=== PATIENT | female | born 1975 | race Caucasian/White ===

== ENCOUNTER → 2020-08-05 15:15 | Outpatient (CLI) | payer OTHER, SELFPAY ==
[2020-08-05 16:58] LABS: Anion Gap 6 (5-15); BUN 8 mg/dL (7-18); BUN/Creat Ratio 13.3 RATIO (10-20); Calcium,Total 9.6 mg/dL (8.5-10.1); Chloride 103 mmol/L (98-107); EST Glomerular Filtration Rate 116 mL/min (>60); Est Glom Filt Rate - Afr Amer 140 mL/min (>60); Glucose 94 mg/dL (74-106); Potassium 3.8 mmol/L (3.5-5.1); Sodium Level 139 mmol/L (136-145)
== END ==
PROVIDERS: PCP Family Medicine Geriatric Medicine; Visit Provider Family Medicine Geriatric Medicine
DX: E87.6 Hypokalemia (principal)
CPT/HCPCS: 36415; 80048

== ENCOUNTER → 2020-08-26 11:31 | Outpatient (CLI) | payer OTHER, SELFPAY ==
[2020-08-26 12:19] LABS: Absolute Lymphocyte Count 1.27 X10^3/uL (0.83-4.51); Absolute Neutrophil Count 4.2 X10^3/uL (2.0-7.7); Basophil# 0.02 X10^3/uL; Basophil% 0.3 % (0-1); Eosinophil# 0.02 X10^3/uL; Eosinophils% 0.3 % (0-5); Hematocrit 44.4 % (37-47); Hemoglobin 14.4 g/dL (12.0-15.0); Lymphocyte # 1.27 X10^3/ul (4.0); Mean Corp Hgb Conc 32.4 g/dL (32-36); Mean Corpuscular Hgb 30.3 pg (27.0-32.0); Mean Corpuscular Volume 93.3 fL (81-99); Monocyte# 0.48 X10^3/uL; Monocyte% 7.9 % (0-10); NRBC Flagged by Analyzer 0 % (0-5); Neutrophil # 4.23 X10^3/uL (2.7-7.7); Platelet Count 324 K/mm3 (150-450); RBC Distribution Width SD 44.7 fl (35.1-43.9); Red Blood Count 4.76 M/mm3 (4.2-5.4); White Blood Count 6.1 K/mm3 (4.4-11.0)
[2020-08-26 12:37] LABS: ALB/GLOB Ratio 1.3 RATIO (0.9-2.4); AST(SGOT) 15 U/L (15-37); Alanine Aminotransfer ALT/SGPT 36 U/L (13-56); Albumin, Serum 4.7 g/dL (3.2-5.0); Alkaline Phosphatase 123 U/L (45-117); Anion Gap 9 (5-15); BUN 14 mg/dL (7-18); BUN/Creat Ratio 24.6 RATIO (10-20); Calcium,Total 9.7 mg/dL (8.5-10.1); Chloride 102 mmol/L (98-107); Creatinine, Serum 0.57 mg/dL (0.55-1.02); EST Glomerular Filtration Rate 123 mL/min (>60); Est Glom Filt Rate - Afr Amer 149 mL/min (>60); Globulin 3.5 g/dL (2.2-4.2); Glucose 93 mg/dL (74-106); Potassium 3.6 mmol/L (3.5-5.1); Protein, Total 8.2 g/dL (6.4-8.2); Sodium Level 140 mmol/L (136-145)
== END ==
PROVIDERS: PCP Family Medicine Geriatric Medicine; Visit Provider Family Medicine Geriatric Medicine
DX: R11.0 Nausea (principal); R19.5 Other fecal abnormalities; N39.0 Urinary tract infection, site not specified
CPT/HCPCS: 36415; 80053; 82274; 83630; 85025; 87086; 87088; 87177; 87209; 87493; 87506

== ENCOUNTER → 2020-12-16 10:08 | Outpatient (CLI) | payer OTHER, SELFPAY ==
[2020-12-16 12:42] LABS: Absolute Lymphocyte Count 1.27 X10^3/uL (0.83-4.51); Absolute Neutrophil Count 4.1 X10^3/uL (2.0-7.7); Basophil# 0.03 X10^3/uL; Basophil% 0.5 % (0-1); Eosinophil# 0.07 X10^3/uL; Eosinophils% 1.2 % (0-5); Hematocrit 43.1 % (37-47); Hemoglobin 14.2 g/dL (12.0-15.0); Lymphocyte # 1.27 X10^3/ul (0.83-4.51); Lymphocyte % 21.1 % (19-41); Mean Corp Hgb Conc 32.9 g/dL (32-36); Mean Corpuscular Hgb 29.8 pg (27.0-32.0); Mean Corpuscular Volume 90.4 fL (81-99); Mean Platelet Vol. 10.6 fl (6.2-12.0); Monocyte# 0.52 X10^3/uL; Monocyte% 8.6 % (0-10); NRBC Flagged by Analyzer 0 % (0-5); Neutrophil # 4.07 X10^3/uL (2.7-7.7); Neutrophil % 67.6 % (47-70); Platelet Count 280 K/mm3 (150-450); RBC Distribution Width CV 11.6 % (11.6-14.6); RBC Distribution Width SD 38.5 fl (35.1-43.9); Red Blood Count 4.77 M/mm3 (4.2-5.4)
[2020-12-16 13:17] LABS: ALB/GLOB Ratio 1.2 RATIO (0.9-2.4); AST(SGOT) 24 U/L (15-37); Alanine Aminotransfer ALT/SGPT 42 U/L (13-56); Albumin, Serum 4.1 g/dL (3.2-5.0); Alkaline Phosphatase 120 U/L (45-117); Anion Gap 6 (5-15); BUN 16 mg/dL (7-18); BUN/Creat Ratio 23.4 RATIO (10-20); Calcium,Total 8.7 mg/dL (8.5-10.1); Chloride 105 mmol/L (98-107); Creatinine, Serum 0.68 mg/dL (0.55-1.02); EST Glomerular Filtration Rate 99 mL/min (>60); Est Glom Filt Rate - Afr Amer 120 mL/min (>60); Globulin 3.3 g/dL (2.2-4.2); Glucose 96 mg/dL (74-106); Potassium 3.9 mmol/L (3.5-5.1); Protein, Total 7.4 g/dL (6.4-8.2); Sodium Level 138 mmol/L (136-145); Thyroid Stim Hormone (TSH) 0.98 uIU/mL (0.358-3.74)
== END ==
PROVIDERS: PCP Family Medicine Geriatric Medicine; Visit Provider Family Medicine Geriatric Medicine
DX: R53.83 Other fatigue (principal)
CPT/HCPCS: 36415; 80053; 84443; 85025

== ENCOUNTER → 2021-01-10 10:16 | Outpatient (CLI) | payer OTHER, SELFPAY ==
[2021-01-10 12:27] LABS: Calcium,Total 9.4 mg/dL (8.5-10.1); Magnesium 2.5 mg/dL (1.6-2.6)
[2021-01-10 12:41] LABS: PTHIN 29.4 pg/mL (18.4-80.1); Vitamin D,25 Hydroxy 27.8 ng/mL
== END ==
PROVIDERS: PCP Family Medicine Geriatric Medicine; Referring Provider Internal Medicine Endocrinology, Diabetes & Metabolism; Visit Provider Internal Medicine Endocrinology, Diabetes & Metabolism
DX: M81.0 Age-related osteoporosis without current pathological fracture (principal); E55.9 Vitamin D deficiency, unspecified
CPT/HCPCS: 36415; 82306; 82310; 83735; 83970

== ENCOUNTER → 2021-02-14 08:33 | Outpatient (CLI) | payer OTHER, SELFPAY ==
[2021-02-14 08:38] VITALS: BP 113/73; PULSE 84; RESP 16; TEMP 36.4; O2SAT 99; BMI 21.6
[2021-02-14] MEDS: DENOSUMAB 60 MG/ML SC (08:46)
== END ==
PROVIDERS: PCP Family Medicine Geriatric Medicine; Referring Provider Internal Medicine Endocrinology, Diabetes & Metabolism; Visit Provider Internal Medicine Endocrinology, Diabetes & Metabolism
DX: M81.8 Other osteoporosis without current pathological fracture (principal)
CPT/HCPCS: 96372; J0897

== ENCOUNTER → 2021-05-21 | Outpatient (CLI) | payer OTHER, SELFPAY | END | disposition home or self-care (01) | LOC: LABSPEC 15:37 | PROVIDERS: PCP Family Medicine Geriatric Medicine; Visit Provider Otolaryngology Otolaryngology/Facial Plastic Surgery | DX: J32.9 Chronic sinusitis, unspecified (principal) | CPT/HCPCS: 87070; 87205 ==

== ENCOUNTER 2021-08-20 12:26 | Outpatient (CLI) | payer SELFPAY ==
[2021-08-20 13:05] VITALS: BP 118/79; PULSE 95; RESP 16; TEMP 36.3; O2SAT 98; BMI 24.2
[2021-08-20] MEDS: DENOSUMAB 60 MG/ML SC (13:08)
== END 2021-08-20 23:59 | disposition home or self-care (01) ==
PROVIDERS: PCP Family Medicine Geriatric Medicine; Referring Provider Internal Medicine Endocrinology, Diabetes & Metabolism; Visit Provider Internal Medicine Endocrinology, Diabetes & Metabolism
DX: M81.8 Other osteoporosis without current pathological fracture (principal)
CPT/HCPCS: 96372; J0897

== ENCOUNTER → 2022-08-14 | Outpatient (CLI) | payer OTHER, SELFPAY ==
[2022-08-14 10:38] LABS: Absolute Lymphocyte Count 1.44 X10^3/uL (0.83-4.51); Absolute Neutrophil Count 3.6 X10^3/uL (2.0-7.7); Basophil# 0.02 X10^3/uL; Basophil% 0.3 % (0-1); Eosinophil# 0.07 X10^3/uL; Eosinophils% 1.2 % (0-5); Hematocrit 41.6 % (37-47); Lymphocyte # 1.44 X10^3/ul (0.83-4.51); Lymphocyte % 24.9 % (19-41); Mean Corp Hgb Conc 33.7 g/dL (32-36); Mean Corpuscular Hgb 28.4 pg (27.0-32.0); Mean Corpuscular Volume 84.4 fL (81-99); Mean Platelet Vol. 10.4 fl (6.2-12.0); Monocyte# 0.65 X10^3/uL; Monocyte% 11.2 % (0-10); NRBC Flagged by Analyzer 0 % (0-5); Neutrophil # 3.57 X10^3/uL (2.7-7.7); Neutrophil % 61.9 % (47-70); Platelet Count 257 K/mm3 (150-450); RBC Distribution Width CV 10.7 % (11.6-14.6); RBC Distribution Width SD 32.9 fl (35.1-43.9); Red Blood Count 4.93 M/mm3 (4.2-5.4); White Blood Count 5.8 K/mm3 (4.4-11.0)
[2022-08-14 11:30] LABS: ALB/GLOB Ratio 1.2 RATIO (0.9-2.4); AST(SGOT) 49 U/L (15-37); Alanine Aminotransfer ALT/SGPT 88 U/L (13-56); Albumin, Serum 3.7 g/dL (3.2-5.0); Alkaline Phosphatase 152 U/L (45-117); Anion Gap 7 (5-15); BUN 17 mg/dL (7-18); Calcium,Total 9.7 mg/dL (8.5-10.1); Chloride 106 mmol/L (98-107); Creatinine, Serum 0.45 mg/dL (0.55-1.02); EST Glomerular Filtration Rate 161 mL/min (>60); Est Glom Filt Rate - Afr Amer 195 mL/min (>60); Globulin 3.2 g/dL (2.2-4.2); Glucose 99 mg/dL (74-106); Potassium 3.9 mmol/L (3.5-5.1); Protein, Total 6.9 g/dL (6.4-8.2); Sodium Level 139 mmol/L (136-145); T4 Free Direct 3.44 ng/dL (0.76-1.46); Thyroid Stim Hormone (TSH) < 0.01 uIU/mL (0.358-3.74)
[2022-08-14 11:43] LABS: Vitamin D,25 Hydroxy 25.8 ng/mL
[2022-08-15 08:59] LABS: Thyroid Peroxidase AB > 600 IU/mL (0-34)
== END | disposition home or self-care (01) ==
LOC: PAVLAB 10:23
PROVIDERS: Internal Medicine Endocrinology, Diabetes & Metabolism; PCP Family Medicine Geriatric Medicine; Referring Provider Family Medicine Geriatric Medicine; Visit Provider Family Medicine Geriatric Medicine
DX: R53.83 Other fatigue (principal); E59 Dietary selenium deficiency; M81.8 Other osteoporosis without current pathological fracture; E04.9 Nontoxic goiter, unspecified
CPT/HCPCS: 36415; 80053; 82306; 84439; 84443; 85025; 86376

== ENCOUNTER → 2022-08-19 | Outpatient (CLI) | payer OTHER, SELFPAY ==
--- NOTE | 2022-08-19 07:34 | NM_ITS ---
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 EXAMINATION: NUCLEAR MEDICINE THYROID THERAPY - NM Radiopharmaceutical Therapy, by oral administration TECHNIQUE: After obtaining informed consent, the patient was orally administered a 12 mCi I-131 tablet. COMPARISON: None. FINDINGS: NM/Therapy I-131 IMPRESSION: Radioactive iodine therapy. Electronically Signed: Michael Cabello MD at 9:05 EDT ,
== END | disposition home or self-care (01) ==
PROVIDERS: PCP Family Medicine Geriatric Medicine; Visit Provider Internal Medicine Endocrinology, Diabetes & Metabolism
DX: E05.00 Thyrotoxicosis with diffuse goiter without thyrotoxic crisis or storm (principal)
CPT/HCPCS: 79005; A9517

== ENCOUNTER → 2022-09-28 | Outpatient (CLI) | payer OTHER, SELFPAY ==
[2022-09-28 14:16] LABS: T4 Free Direct 0.45 ng/dL (0.76-1.46); Thyroid Stim Hormone (TSH) 0.18 uIU/mL (0.358-3.74)
== END | disposition home or self-care (01) ==
LOC: PAVLAB 13:34
PROVIDERS: PCP Family Medicine Geriatric Medicine; Referring Provider Internal Medicine Endocrinology, Diabetes & Metabolism; Visit Provider Internal Medicine Endocrinology, Diabetes & Metabolism
DX: E05.00 Thyrotoxicosis with diffuse goiter without thyrotoxic crisis or storm (principal)
CPT/HCPCS: 36415; 84439; 84443

== ENCOUNTER → 2022-12-01 | Outpatient (CLI) | payer OTHER, SELFPAY ==
[2022-12-01 14:56] LABS: T4 Free Direct 0.73 ng/dL (0.76-1.46)
== END | disposition home or self-care (01) ==
LOC: PAVLAB 13:49
PROVIDERS: PCP Family Medicine Geriatric Medicine; Referring Provider Internal Medicine Endocrinology, Diabetes & Metabolism; Visit Provider Internal Medicine Endocrinology, Diabetes & Metabolism
DX: E89.0 Postprocedural hypothyroidism (principal)
CPT/HCPCS: 36415; 84439; 84443

== ENCOUNTER 2023-01-12 13:34 | Outpatient (CLI) | payer OTHER, SELFPAY ==
[2023-01-12 14:08] VITALS: BP 126/93; PULSE 71; RESP 16; TEMP 35.8; O2SAT 97
[2023-01-12] MEDS: DENOSUMAB 60 MG/ML SC (14:14)
== END 2023-01-12 13:35 | disposition home or self-care (01) ==
LOC: MEDOUTP 13:34
PROVIDERS: PCP Family Medicine Geriatric Medicine; Referring Provider Internal Medicine Endocrinology, Diabetes & Metabolism; Visit Provider Internal Medicine Endocrinology, Diabetes & Metabolism
DX: M81.0 Age-related osteoporosis without current pathological fracture (principal)
CPT/HCPCS: 96372; J0897

== ENCOUNTER → 2023-02-01 | Outpatient (CLI) | payer OTHER, SELFPAY ==
[2023-02-01 11:31] LABS: T4 Free Direct 0.91 ng/dL (0.76-1.46)
== END | disposition home or self-care (01) ==
LOC: PAVLAB 10:13
PROVIDERS: PCP Family Medicine Geriatric Medicine; Referring Provider Internal Medicine Endocrinology, Diabetes & Metabolism; Visit Provider Internal Medicine Endocrinology, Diabetes & Metabolism
DX: E89.0 Postprocedural hypothyroidism (principal)
CPT/HCPCS: 36415; 84439; 84443

== ENCOUNTER → 2023-04-19 | Outpatient (CLI) | payer OTHER, SELFPAY ==
[2023-04-19 10:50] LABS: Free T3 1.8 pg/mL (2.18-3.98); T4 Free Direct 0.81 ng/dL (0.76-1.46)
== END | disposition home or self-care (01) ==
PROVIDERS: PCP Family Medicine Geriatric Medicine; Referring Provider Internal Medicine Endocrinology, Diabetes & Metabolism; Visit Provider Internal Medicine Endocrinology, Diabetes & Metabolism
DX: E89.0 Postprocedural hypothyroidism (principal)
CPT/HCPCS: 36415; 84439; 84443; 84481

== ENCOUNTER → 2023-06-30 | Outpatient (CLI) | payer OTHER, SELFPAY ==
[2023-06-30 11:06] LABS: T4 Free Direct 1.22 ng/dL (0.76-1.46); Thyroid Stim Hormone (TSH) 6.36 uIU/mL (0.358-3.74)
--- OUTSIDE RECORDS SUMMARY | 2023-06-30 12:45 | XMS RPT_ITS | CCD ---
Author Name Unknown Address [address] [place] [address] Organization [facility] Care Team Providers Care Valet Parking Attendant Name Role Phone Pierre Samuel Primary Care Provider Unavailable Primary Care Provider Unavailabl e Allergies Allergy Classification Reported Allergen(s) Allergy Type Date of Onset Reaction(s) Facility (10 sources) Penicillins; Translations: [PENICILLINS] Propensity to adverse reactions to drug 2 [place], [place] (1 source) Penicillins Drug Intolerance 2 [facility] Medications Current Medications Medication Drug Class(es) Dates Sig (Normalized) Sig (Original) Albuterol (5 sources) beta2-Adrenergic Agonist ALBUTEROL SULFATE IN Inhale into the lungs 0 Active albuterol 0.833 mg/ml / ipratropium bromide 0.167 mg/ml inhalation solution (2 sources) Anticholinergic, beta2-Adrenergic Agonist Start: 07-02-2020 ipratropium-albute rol (DUONEB) 0.5-2.5 (3) MG/3ML SOLN nebulizer solution Take 1 vial by nebulization 2 times daily as needed 0 07/02/2020 Active alginic acid 200 mg / calcium carbonate 80 mg / magnesium trisilicate 20 mg / sodium bicarbonate 70 mg oral tablet (5 sources) End: 06-23-2020 take 1 tablet by mouth once daily calcium carbonate (TUMS) 500 MG chewable tablet Take 1 tablet by mouth daily 0 Active calcium carbonate 500 mg chewable tablet (3 sources) take 1 tablet by mouth once daily calcium carbonate (TUMS) 500 MG chewable tablet Take 1 tablet by mouth daily 0 Active doxepin hydrochloride 10 mg oral capsule (2 sources) Tricyclic Antidepressant take 1 capsule by mouth once daily doxepin (SINEQUAN) 10 MG capsule Take 10 mg by mouth nightly 0 Active levocetirizine dihydrochloride 5 mg oral tablet (7 sources) Histamine-1 Receptor Antagonist take 1 tablet by mouth once daily levocetirizine (XYZAL) 5 MG tablet Take 5 mg by mouth nightly 0 Active predniSONE (3 sources) PREDNISONE PO Indications: dose pack Take by mouth Indications: dose pack 0 Active sodium chloride flush 0.9 % injection 3 mL (1 source) Start: 06-23-2020 sodium chloride flush 0.9 % injection 3 mL sulfamethoxazole 800 mg / trimethoprim 160 mg oral tablet (1 source) Dihydrofolate Reductase Inhibitor Antibacterial, Sulfonamide Antimicrobial Start: 09-28-2022 End: 10-08-2022 take 1 tablet by mouth every twelve hours sulfamethoxazole-t rimethoprim (BACTRIM DS) 800-160 mg per tablet Indications: Recurrent UTI (urinary tract infection) , Urinary frequency Take 1 tablet by mouth every 12 hours for 10 days. 20 tablet 0 09/28/2022 10/08/2022 Active Completed/Discontinued Medications Medication Drug Class(es) Dates Sig (Normalized) Sig (Original) acetaminophen 325 mg / butalbital 50 mg / caffeine 40 mg oral tablet (3 sources) Barbiturate, Central Nervous System Stimulant, Methylxanthine Start: 04-07-2018 End: 06-23-2020 take 1 tablet by mouth every six hours as needed for headache butalbital-acetam inophen-caffeine (FIORICET, ESGIC) 50-325-40 MG per tablet Take 1 tablet by mouth every 6 hours as needed for Headaches 16 tablet 0 04/07/2018 06/23/2020 Discontinued (LIST CLEANUP) cholecalciferol 1000 unt oral tablet (3 sources) Vitamin D End: 06-23-2020 take 1 tablet by mouth once daily vitamin D (CHOLECALCIFEROL) 1000 UNIT TABS tablet Take 1,000 Units by mouth daily 0 06/23/2020 Discontinued (LIST CLEANUP) citalopram 10 mg oral tablet (1 source) Serotonin Reuptake Inhibitor Start: 09-03-2020 take 1 tablet by mouth once daily citalopram hydrobromide (CELEXA) 10 mg tablet Take 10 mg by mouth once daily. 0 09/03/2020 Active Problems Active Problems Problem Classification Problem Date Documented Da te Episodic/Chronic Anxiety disorders (1 source) Anxiety about body function or health; Translations: [Anxiety about health] Chronic Cardiac dysrhythmias (3 sources) Tachycardia; Translations: [Palpitations] Episodic Essential hypertension (1 source) Essential hypertension; Translations: [Essential hypertension] Chronic Genitourinary symptoms and ill-defined conditions (1 source) Increased frequency of urination; Translations: [Frequency of micturition] Episodic Nutritional deficiencies (1 source) Vitamin D deficiency; Translations: [Vitamin D deficiency, unspecified] Onset: 10-21-2011 10-21-2011 Chronic Osteoporosis (1 source) Osteoporosis; Translations: [Age-related osteoporosis without current pathological fracture] Onset: 10-21-2011 07-06-2020 Chronic Other congenital anomalies (1 source) Olguin syndrome; 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, unspecified] Onset: 10-21-2011 05-19-2021 Chronic Other ear and sense organ disorders (1 source) Hearing loss; Translations: [Unspecified hearing loss, unspecified ear] Onset: 01-23-2015 01-23-2015 Chronic Other gastrointestinal disorders (1 source) Dysphagia; Translations: [Dysphagia, unspecified type] Episodic Other infections; including parasitic (1 source) Late effects of other and unspecified infectious and parasitic diseases; 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] Onset: 07-24-2020 07-24-2020 Chronic Other lower respiratory disease (1 source) Dyspnea; Translations: [Dyspnea, unspecified type] Episodic Unclassified (1 source) History of COVID-19; Translations: [History of COVID-19] Onset: 08-11-2020 08-11-2020 Urinary tract infections (1 source) Recurrent urinary tract infection; Translations: [Urinary tract infection, site not specified] Episodic Past or Other Problems Problem Classification Problem Date Documented Da te Episodic/Chronic Nonspecific chest pain (3 sources) Chest pain; Translations: [Chest pain, unspecified] Onset: 08-11-2020 08-11-2020 Episodic Other infections; including parasitic (2 sources) Personal history of other infectious and parasitic diseases; Translations: [History of COVID-19] Onset: 08-11-2020 08-11-2020 Episodic Other lower respiratory disease (1 source) Dyspnea on exertion; Translations: [Shortness of breath] Onset: 07-24-2020 07-24-2020 Episodic Spondylosis; intervertebral disc disorders; other back problems (1 source) Spinal stenosis of lumbar region; Translations: [Spinal stenosis, lumbar region without neurogenic claudication] Onset: 04-11-2017 04-11-2017 Episodic Results Test Name Value Interpretation Reference Range Facil ity Vital Signs Date Time Vital Sign Value Performing Clinician Facility 09-28-2022 18:36-0400 Body height 149.9 cm Vonnie Slabaugh PA-C Work Phone: [facility] 09-28-2022 18:36-0400 Body temperature 97.59 [degF] Vonnie Slabaugh PA-C Work Phone: [facility] 09-28-2022 18:36-0400 Body weight 54.43 kg Vonnie Slabaugh PA-C Work Phone: [facility] 09-28-2022 18:36-0400 Diastolic blood pressure 98 mm[Hg] Vonnie Slabaugh PA-C Work Phone: [facility] 09-28-2022 18:36-0400 Heart rate 90 /min Vonnie Slabaugh PA-C Work Phone: [facility] 09-28-2022 18:36-0400 Respiratory rate 16 /min Vonnie Slabaugh PA-C Work Phone: [facility] 09-28-2022 18:36-0400 SaO2% (BldA) [Mass fraction] 99 % Vonnie Slabaugh PA-C Work Phone: [facility] 09-28-2022 18:36-0400 Systolic blood pressure 158 mm[Hg] Vonnie Slabaugh PA-C Work Phone: [facility] 08-24-2020 01:21-0400 BMI (Body Mass Index) 21.64 kg/m2 Margarita Brianrichkarly PALACIO Work Phone: 08-24-2020 01:21-0400 Body Temperature 97.9 [degF] Margarita Torresrichkarly TRANAram Work Phone: 08-24-2020 01:21-0400 Body weight 45.36 kg Margarita PALACIO Work Phone: 08-24-2020 01:21-0400 BP Diastolic 96 mm[Hg] Margarita PALACIO Work Phone: 08-24-2020 01:21-0400 BP Systolic 147 mm[Hg] Margarita PALACIO Work Phone: 08-24-2020 01:21-0400 Height 144.8 cm Margarita PALACIO Work Phone: 08-24-2020 01:21-0400 Pulse (Heart Rate) 85 /min Margarita PALACIO Work Phone: 08-24-2020 01:21-0400 Pulse Oximetry 95 % Margarita PALACIO Work Phone: 08-24-2020 01:21-0400 Respiratory Rate 16 /min Margarita PALACIO Work Phone: 07-28-2020 23:55-0500 BP Diastolic 93 mm[Hg] Chon PALACIO Work Phone: 07-28-2020 23:55-0500 BP Systolic 125 mm[Hg] Chon PALACIO Work Phone: 07-28-2020 23:55-0500 Pulse (Heart Rate) 88 /min Chon PALACIO Work Phone: 07-28-2020 23:55-0500 Pulse Oximetry 99 % Chon PALACIO Work Phone: 07-28-2020 23:55-0500 Respiratory Rate 19 /min Chon PALACIO Work Phone: 07-28-2020 23:06-0500 Body Temperature 97.5 [degF] Chon PALACIO Work Phone: 07-04-2020 05:30-0500 BP Diastolic 82 mm[Hg] Umair Gardner HAKEEM Work Phone: 07-04-2020 05:30-0500 BP Systolic 128 mm[Hg] Umair PALACIO Work Phone: 07-04-2020 05:30-0500 Pulse Oximetry 99 % Umair PALACIO Work Phone: 07-04-2020 04:29-0500 Body Temperature 97.81 [degF] Umair PALACIO Work Phone: 07-04-2020 04:29-0500 Pulse (Heart Rate) 90 /min Umair PALACIO Work Phone: 07-04-2020 04:29-0500 Respiratory Rate 18 /min Umair PALACIO Work Phone: 06-23-2020 21:09-0500 BP Diastolic 106 mm[Hg] [facility] [place] 06-23-2020 21:09-0500 BP Systolic 135 mm[Hg] [facility] [place] 06-23-2020 21:09-0500 Pulse (Heart Rate) 87 /min [facility] [place] 06-23-2020 21:09-0500 Pulse Oximetry 99 % [facility] [place] 06-23-2020 21:09-0500 Respiratory Rate 18 /min [facility] [place] 06-23-2020 20:14-0500 BMI (Body Mass Index) 21.64 kg/m2 [facility] 06-23-2020 20:14-0500 Body Temperature 97.9 [degF] [facility] [place] 06-23-2020 20:14-0500 Body weight 45.36 kg [facility] [place] 06-23-2020 20:14-0500 Height 144.8 cm [facility] [place] 06-21-2020 10:18-0500 BP Diastolic 95 mm[Hg] Carlos [facility] [place] 06-21-2020 10:18-0500 BP Systolic 125 mm[Hg] Carlos [facility] [place] 06-21-2020 10:18-0500 Pulse (Heart Rate) 90 /min [facility]2020 10:18-0500 Pulse Oximetry 96 % Carlos Mane [facility] ROBINS 06-21-2020 10:18-0500 Respiratory Rate 14 /min Carlos Mane [facility] Rubi 06-21-2020 08:37-0500 Body Temperature 97.7 [degF] [facility] En[facility]ters Encounter Date Encounter Type Care Provider Facility Start: 09-28-2022 End: 09-28-2022 ambulatory Facility:[facility] Start: 09-28-2022 End: 09-28-2022 Patient encounter procedure Vonnie Kumari PA-C Work Phone: [facility] Procedures Date Procedure Procedure Detail Performing Clinician Start: 09-28-2022 Urnls dip stick/tabl et rgnt auto w/o microscopy [facility] Provider Start: 01-22-2021 Dxa bone density fernando dy 1/> sites axial skel Aayush Steiner MD Work Phone: Start: 07-18-2020 Radiologic exam ches t 2 views Samuel Jay Work Phone: Start: 06-24-2020 Ct angiography chest w/contrast/noncontrast Renetta Robledo Other Phone: Start: 06-23-2020 Radiologic exam ches t 2 views Umair Bradley Work Phone: Start: 06-23-2020 Assay of troponin quantitative Umair Bradley Work Phone: Start: 06-23-2020 Blood count complete auto&auto difrntl wbc Umair Bradley Work Phone: Start: 06-23-2020 Comprehensive metabo lic panel Umair Bradley Work Phone: Start: 06-23-2020 Fibrin dgradj produc ts d-dimer quantitative Umair Bradley Work Phone: Start: 06-23-2020 Ecg routine ecg w/le ast 12 lds w/i&r Umair Bradley Work Phone: Start: 06-21-2020 Assay of magnesium Saud Navarro Work Phone: Start: 06-21-2020 Assay of troponin quantitative Carlos Navarro Work Phone: Start: 06-21-2020 Comprehensive metabo lic panel Carlos Navarro Work Phone: Start: 06-21-2020 Blood count complete auto&auto difrntl wbc Carlos Navarro Work Phone: Start: 06-21-2020 Fibrin dgradj produc ts d-dimer quantitative Carlos Navarro Work Phone: Start: 10-20-2019 Mri brain brain stem w/o w/contrast material Bernardo Isabel Work Phone: Plan of Treatment Date Care Activity Detail Author Start: 03-17-2024 DIABETES SCREEN DIABETES SCREEN [facility] Start: 01-22-2023 [facility] Start: 05-24-2022 DEPRESSION ASSESSMENT DEPRESSION ASSESSMENT [facility] Start: 2021 COLOGUARD (FIT-DNA) COLOGUARD (FIT-DNA) [facility] Start: 2021 Colonoscopy COLONOSCOPY [facility] Start: 2021 COLORECTAL CANCER SCREENING COLORECTAL CANCER SCREENING [facility] Start: [address] COLONOGRAPHY [facility] Start: 2021 FECAL OCCULT BLOOD FECAL OCCULT BLOOD [facility] Start: 2021 LIPID SCREEN LIPID SCREEN [facility] Start: 2021 SIGMOIDOSCOPY SIGMOIDOSCOPY [facility] Start: 01-22-2021 Influenza vaccination [facility] Work Phone: Start: 11-13-2020 COVID-19 VACCINE (3 - Booster for Moderna series) COVID-19 VACCINE (3 - Booster for Moderna series) [facility] Start: 07-22-2020 End: 07-22-2020 Appointment 07/22/2020 Appointment Radiology [facility] Start: 01-23-2020 Influenza vaccination [facility] Start: 2016 Lipid panel Lipid screen [place], [place] Start: 2016 Mammography MAMMOGRAM [facility] Start: 2006 HPV TESTING HPV TESTING [facility] Start: 1997 PAP TESTING PAP TESTING [facility] Start: 1997 Screening for malignant neoplasm of cervix Cervical cancer screen [place], [place] Start: 12-28-1995 DTaP/Tdap/Td vaccine (1 - Tdap) DTaP/Tdap/Td vaccine (1 - Tdap) [place] Start: 12-28-1995 Urine microalbumin profile DTAP,TDAP,TD (1 - Tdap) [facility] Start: 1994 HEPATITIS C SCREENING HEPATITIS C SCREENING [facility] Start: 1994 HIV SCREENING HIV SCREENING [facility] Start: 1992 COVID-19 Vaccine (1) COVID-19 Vaccine (1) [facility] Work Phone: Start: 12-28-1991 HIV screening HIV screen [place], [place] Start: 1976 HEPATITIS B (1 of 3 - 3-dose series) HEPATITIS B (1 of 3 - 3-dose series) [facility] Start: 1976 Hepatitis C screening Hepatitis C screen [place], [place] Bacteria identified in Urine by Culture URINE CULTURE Microbiology Routine Recurrent UTI (urinary tract infection) Urinary frequency 09/28/2022 6:43 PM EDT [facility] Work Phone: EKG 12 Lead - Chest Pain EKG 12 Lead - Chest Pain ECG STAT 06/23/2020 8:23 PM EST [place], [place] Immunizations Immunization Date Immunization Notes Care Provider Clare hartman 09-18-2020 COVID-19 original vaccine, full dose, monovalent (MODERNA) Vonnie LIM-C Work Phone: [facility] 08-21-2020 COVID-19 original vaccine, full dose, monovalent (MODERNA) Vonnie Kumari PA-C Work Phone: [facility] 02-19-2018 influenza, injectabl e, quadrivalent, preservative free Vonnie Kumari PA-C Work Phone: [facility] Payers Date Payer Category Payer Private Health Insurance [id number] 2017 Private Health Insurance [facility] CHOICE PLUS [id number] 2017-Present [phone] [address] [place] [address] HMO [id number] Social History Date Type Detail Facility Start: 04-07-2018 Tobacco smoking stat us NHIS Unknown if ever smoked [employer] [facility] Start: 1975 Sex Assigned At Not on file [employer] [facility] Start: 10-21-2011 End: 06-21-2020 Tobacco smoking status NHIS Never smoker [facility] Exposure to SARS-CoV -2 (event) Yes [employer] [facility] Start: 10-21-2011 End: 06-23-2020 Tobacco use and exposure Never used [employer] [facility] Start: 06-23-2020 End: 08-11-2020 Alcohol intake Lifetime non-drinker (finding) [employer] 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 Author Type: Physician Senior Business Intelligence Analyst Type: Progress Notes Filed: 09/28/2022 6:55 PM Note Text: 09/28/2022 Patient presents with: UTI: Back pain, urgency started yesterday SUBJECTIVE: This is a 46 year old that is here today for possible UTI symptoms. The patient complains of urinary urgency and urinary frequency ongoing. No dysuria. She just had a UTI 2 weeks ago and finished a course of Macrobid 5 days ago for E. Coli UTI (completed 09/23/22), BUT she states all her UTI symptoms never resolved completely. Frequency/urgency has persisted. No pain. New left low back ache x 1 day. The patient denies fever, chills, abominal pain, lower abdominal pressure, bladder spasms, back pain, or n/v. The patient denies any discharge, lesions, odor, change in sexual partners, or concern for STIs. Dysuria pain: 0 out of 10 with 10 being the worst pain. The lower abdominal pain is 0 out of 10 with 10 being the worst pain. The back/flank pain is 2 out of 10 with 10 being the worst pain. Self-treatment:. Macrobid The severity is mild and the symptoms are not improving. The patient has not had similar symptoms in the last 3 months. The patient has not had an antibiotic in the last 3 months. LMP:. NA Reviewed meds, OTCs and supplements. Meds reviewed. Allergies and medications reviewed. Reviewed allergies, medications, social history, and past medical history. Barriers to learning: none. PAST MEDICAL HISTORY Diagnosis Date GERD (gastroesophageal reflux disease) Hiatal hernia 07/29/2020 small Low vitamin D level Osteopenia Psychiatric disorder anxiety Olguin syndrome ALLERGIES Penicillins MEDICATIONS Current Outpatient Medications Medication Sig ipratropium bromide (ATROVENT) 42 mcg (0.06 %) nasal spray Use 2 Sprays in the nose four times daily. hydrOXYzine pamoate (VISTARIL) 25 mg capsule Take 25 mg by mouth three times daily as needed. citalopram hydrobromide (CELEXA) 10 mg tablet Take 10 mg by mouth once daily. No current facility-administered medications for this visit. Medications and allergies reviewed by this provider. SOCIAL HISTORY Social History Tobacco Use Smoking status: Never Smokeless tobacco: Never Vaping Use Vaping Use: Never used Substance Use Topics Alcohol use: No Drug use: No REVIEW OF SYSTEMS ROS: constitutional-neg, heent-neg, heart-neg, respiratory-neg, GI-neg, -concern for UTI, skin-neg, lymph-neg, neuro-neg, psych-neg- All systems neg except as noted above in HPI. OBJECTIVE: BP 158/98 Pulse 90 Temp 36.4 ?C (97.6 ?F) Resp 16 Ht 149.9 cm (4' 11 ) Wt 54.4 kg (120 lb) SpO2 99% BMI 24.24 kg/m? . Vital signs reviewed by this provider. Physical Exam Vitals reviewed. Constitutional: General: She is not in acute distress. Appearance: Normal appearance. She is well-developed and normal weight. She is not ill-appearing, toxic-appearing or diaphoretic. Cardiovascular: Rate and Rhythm: Normal rate and regular rhythm. Heart sounds: Normal heart sounds. Pulmonary: Effort: Pulmonary effort is normal. Breath sounds: Normal breath sounds and air entry. Abdominal: General: Abdomen is flat. Bowel sounds are normal. Palpations: Abdomen is soft. Tenderness: There is no abdominal tenderness. There is no right CVA tenderness, left CVA tenderness, guarding or rebound. Musculoskeletal: Back: Neurological: Mental Status: She is alert. Psychiatric: Behavior: Behavior is cooperative. Component Latest Ref Rng AND Units 09/28/2022 GLUCOSE UA (POCT) Negative mg/dL Negative BILIRUBIN UA (POCT) Negative Negative KETONE UA (POCT) Negative mg/dL Negative SPECIFIC GRAVITY UA (POCT) 1.005 - 1.030 1.020 HEMOGLOBIN/BLOOD UA (POCT) Negative Small (A) PH UA (POCT) 4.5 - 8.0 5.5 PROTEIN UA (POCT) Negative mg/dL Negative UROBILINOGEN UA (POCT) Normal E.U./dL 0.2 NITRITE UA (POCT) Negative Negative LEUKOCYTES UA (POCT) Negative Negative COLOR UA (POCT) Yellow CLARITY UA (POCT) Clear ASSESSMENT/PLAN: 1. Recurrent UTI (urinary tract infection) - ICD9: 599.0, ICD10: N39.0 (primary diagnosis) 2. Urinary frequency - ICD9: 788.41, ICD10: R35.0 Completed Macrobid 5 days ago for an E. Coli UTI but symptoms never completely resolved with the Macrobid. No here for continue urinary symptoms. As a result, will treat even though only hematuria is present on UA. - URINE CULTURE - SULFAMETHOXAZOLE 800 MG-TRIMETHOPRIM 160 MG TABLET - UA DIP, URINE (POC) Urine culture sent to the lab. Will contact in 2-3 days with results. Schedule PCP follow up for after the antibiotic is complete to ensure the UTI has cleared. If symptoms worsen, or new symptoms develop go to ER. If you develop fever, chills, worsening back pain, worsening abdominal pain, or new symptoms- see your PCP immediately or go to ER. Follow up as needed. Barriers to Learning: None. (more content not included)... [facility]22 Patient Instructions Note Date & Type Note Facility 09-28-2022 Instructions Vonnie Kumari PA-C - 09/28/2022 6:47 PM EDT ASSESSMENT/PLAN: 1. Recurrent UTI (urinary tract infection) 2. Urinary frequency - I - URINE CULTURE - SULFAMETHOXAZOLE 800 MG-TRIMETHOPRIM 160 MG TABLET - UA DIP, URINE (POC) Urine culture sent to the lab. Will contact in 2-3 days with results. Schedule PCP follow up for after the antibiotic is complete to ensure the UTI has cleared. If symptoms worsen, or new symptoms develop go to ER. If you develop fever, chills, worsening back pain, worsening abdominal pain, or new symptoms- see your PCP immediately or go to ER. Follow up as needed. Barriers to Learning: None. Barriers to Learning: Age. Here with a parent. The patient is instructed to return or seek emergency treatment if symptoms become worse or with any acute change in condition. The patient verbalizes understanding and is in agreement with plan of care. Vonnie Kumari PA-C documented in this encounter [facility] History of Present illness Narrative 09-28-2022 Vonnie Kumari PA-C - 09/28/2022 6:36 PM EDT Note Date & Type Note Facility 09-28-2022 History of Presen t illness Narrative 09/28/2022 Patient presents with: UTI: Back pain, urgency started yesterday SUBJECTIVE: This is a 46 year old that is here today for possible UTI symptoms. The patient complains of urinary urgency and urinary frequency ongoing. No dysuria. She just had a UTI 2 weeks ago and finished a course of Macrobid 5 days ago for E. Coli UTI (completed 09/23/22), BUT she states all her UTI symptoms never resolved completely. Frequency/urgency has persisted. No pain. New left low back ache x 1 day. The patient denies fever, chills, abominal pain, lower abdominal pressure, bladder spasms, back pain, or n/v. The patient denies any discharge, lesions, odor, change in sexual partners, or concern for STIs. Dysuria pain: 0 out of 10 with 10 being the worst pain. The lower abdominal pain is 0 out of 10 with 10 being the worst pain. The back/flank pain is 2 out of 10 with 10 being the worst pain. Self-treatment:. Macrobid The severity is mild and the symptoms are not improving. The patient has not had similar symptoms in the last 3 months. The patient has not had an antibiotic in the last 3 months. LMP:. NA Reviewed meds, OTCs and supplements. Meds reviewed. Allergies and medications reviewed. Reviewed allergies, medications, social history, and past medical history. Barriers to learning: none. PAST MEDICAL HISTORY Diagnosis Date GERD (gastroesophageal reflux disease) Hiatal hernia 07/29/2020 small Low vitamin D level Osteopenia Psychiatric disorder anxiety Olguin syndrome ALLERGIES Penicillins MEDICATIONS Current Outpatient Medications Medication Sig ipratropium bromide (ATROVENT) 42 mcg (0.06 %) nasal spray Use 2 Sprays in the nose four times daily. hydrOXYzine pamoate (VISTARIL) 25 mg capsule Take 25 mg by mouth three times daily as needed. citalopram hydrobromide (CELEXA) 10 mg tablet Take 10 mg by mouth once daily. No current facility-administered medications for this visit. Medications and allergies reviewed by this provider. SOCIAL HISTORY Social History Tobacco Use Smoking status: Never Smokeless tobacco: Never Vaping Use Vaping Use: Never used Substance Use Topics Alcohol use: No Drug use: No REVIEW OF SYSTEMS ROS: constitutional-neg, heent-neg, heart-neg, respiratory-neg, GI-neg, -concern for UTI, skin-neg, lymph-neg, neuro-neg, psych-neg- All systems neg except as noted above in HPI. OBJECTIVE: BP 158/98 Pulse 90 Temp 36.4 C (97.6 F) Resp 16 Ht 149.9 cm (4' 11 ) Wt 54.4 kg (120 lb) SpO2 99% BMI 24.24 kg/m . Vital signs reviewed by this provider. Physical Exam Vitals reviewed. Constitutional: General: She is not in acute distress. Appearance: Normal appearance. She is well-developed and normal weight. She is not ill-appearing, toxic-appearing or diaphoretic. Cardiovascular: Rate and Rhythm: Normal rate and regular rhythm. Heart sounds: Normal heart sounds. Pulmonary: Effort: Pulmonary effort is normal. Breath sounds: Normal breath sounds and air entry. Abdominal: General: Abdomen is flat. Bowel sounds are normal. Palpations: Abdomen is soft. Tenderness: There is no abdominal tenderness. There is no right CVA tenderness, left CVA tenderness, guarding or rebound. Musculoskeletal: Back: Neurological: Mental Status: She is alert. Psychiatric: Behavior: Behavior is cooperative. Component Latest Ref Rng & Units 09/28/2022 GLUCOSE UA (POCT) Negative mg/dL Negative BILIRUBIN UA (POCT) Negative Negative KETONE UA (POCT) Negative mg/dL Negative SPECIFIC GRAVITY UA (POCT) 1.005 - 1.030 1.020 HEMOGLOBIN/BLOOD UA (POCT) Negative Small (A) PH UA (POCT) 4.5 - 8.0 5.5 PROTEIN UA (POCT) Negative mg/dL Negative UROBILINOGEN UA (POCT) Normal E.U./dL 0.2 NITRITE UA (POCT) Negative Negative LEUKOCYTES UA (POCT) Negative Negative COLOR UA (POCT) Yellow CLARITY UA (POCT) Clear ASSESSMENT/PLAN: 1. Recurrent UTI (urinary tract infection) - ICD9: 599.0, ICD10: N39.0 (primary diagnosis) 2. Urinary frequency - ICD9: 788.41, ICD10: R35.0 Completed Macrobid 5 days ago for an E. Coli UTI but symptoms never completely resolved with the Macrobid. No here for continue urinary symptoms. As a result, will treat even though only hematuria is present on UA. - URINE CULTURE - SULFAMETHOXAZOLE 800 MG-TRIMETHOPRIM 160 MG TABLET - UA DIP, URINE (POC) Urine culture sent to the lab. Will contact in 2-3 days with results. Schedule PCP follow up for after the antibiotic is complete to ensure the UTI has cleared. If symptoms worsen, or new symptoms develop go to ER. If you develop fever, chills, worsening back pain, worsening abdominal pain, or new symptoms- see your PCP immediately or go to ER. Follow up as needed. Barriers to Learning: None. Barriers to Learning: Age. Here with a parent. The patient is instructed to return or seek emergency treatment if symptoms become worse or with any acute change in condition. The patient verbalizes understanding and is in agreement with plan of care. Vonnie Kumari PA-C Medical Decision Making: Problems: Moderate: Acute illness with systemic symptoms Data: Unique test(s) ordered: 2 Risk: Low: Low risk from testing/treatment Moderate: Drug management Medical Decision Making Level: 4 - Moderate I spent a total of 20 minutes on the date of the service which included preparing to see the patient, [id number] patient care, completing clinical documentation, performing a medically appropriate examination, counseling and educating the patient/family/caregiver, ordering medications, tests, or procedures, and communicating results to the patient/family/caregiver. documented in this encounter [facility] Progress note 09-18-2022 Note Date & Type Note Facility 09-18-2022 Note HNO ID: [id number] Author: Francoise Elias APRN.SEXUAL ASSAULT COUNSELOR Service: ? Author Type: Nurse Practitioner Type: Progress Notes Filed: 09/18/2022 7:20 PM Note Text: This note was created using [employer]. Subjective Cristine Schultz is a 46 year old female. HPI by patient: Cristine Schultz is a 46 year old presenting to the office with the complaint of uti symptoms. Started overnight. Associated symptoms include painful urination, frequency, and pelvic pressure. Denies fevers, chills, sharp pain in the back/abdomen, vaginal symptoms, risk for , and risk for stds. No history of frequent utis, doesn't recall when the last one was. OTC not used. No antibiotic use in the last 60 days. ALLERGIES Penicillins Rash Family History Reviewed Including Cardiac Diseases, Psychiatric Diseases, AND Substance Abuse Problem: Ovarian cancer Relation: Maternal Grandmother Age of Onset: (Not Specified) Problem: Hypertension Relation: Maternal Grandmother Age of Onset: (Not Specified) Problem: Hypertension Relation: Mother Age of Onset: (Not Specified) Problem: other (fibromyalgia) Relation: Mother Age of Onset: (Not Specified) Problem: Thyroid Relation: Father Age of Onset: (Not Specified) Comment: hypothyroid Problem: Hypertension Relation: Father Age of Onset: (Not Specified) Problem: Diabetes Relation: Maternal Grandfather Age of Onset: (Not Specified) Problem: Kidney Disease Relation: Maternal Grandfather Age of Onset: (Not Specified) Problem: Cancer Relation: Paternal Grandmother Age of Onset: (Not Specified) Comment: stomach Problem: other (suicide) Relation: Paternal Grandfather Age of Onset: (Not Specified) Social History Tobacco Use Smoking status: Never Smokeless tobacco: Never Vaping Use Vaping Use: Never used Alcohol use: No Drug use: No Active 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 Vitamin D deficiency Date Noted: 10/21/2011 Osteoporosis Date Noted: 10/21/2011 Hearing loss Date Noted: 01/23/2015 Spinal stenosis of lumbar region Date Noted: 04/11/2017 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 HENT: Negative. Eyes: Negative. Respiratory: Negative. Cardiovascular: Negative. Gastrointestinal: Negative. Endocrine: Negative. Genitourinary: Positive for dysuria and frequency. Negative for vaginal discharge. Musculoskeletal: Negative. Skin: Negative. Neurological: Negative. Hematological: Negative. Objective BP 138/90 Pulse 100 Temp 36.4 ?C (97.5 ?F) Resp 16 Ht 149.9 cm (4' 11 ) Wt 54.6 kg (120 lb 6.4 oz) SpO2 97% BMI 24.32 kg/m? Physical Exam Vitals reviewed. Constitutional: General: She is not in acute distress. Appearance: She is not ill-appearing, toxic-appearing or diaphoretic. Cardiovascular: Rate and Rhythm: Normal rate and regular rhythm. Pulmonary: Effort: Pulmonary effort is normal. Abdominal: General: Bowel sounds are normal. Palpations: Abdomen is soft. Tenderness: There is abdominal tenderness (pressure) in the suprapubic area. There is no right CVA tenderness, left CVA tenderness, guarding or rebound. Neurological: Mental Status: She is alert. Assessment and Plan (R39.9) UTI symptoms (primary encounter diagnosis) Plan: nitrofurantoin monohydrate and macrocrystal (MACROBID) 100 mg capsule, URINE CULTURE UA positive for small leukocytes and blood. Will start macrobid and send culture. -Increase fluids. Focus on clears. -Decrease sugary drink intake. Minimize caffeine. -Wipe front to back. No tight clothing. No bubble baths. -Results will be released to [facility] unless there is a need for a change in medication. -If no improvement in 3-5 days please be re-seen by primary care. -Be seen immediately or go to the ER with worsening/warning symptoms. Warning symptoms include: chills, severe flank pain, severe abdominal/pelvic pain, fevers 101 or higher, chest pain, and respiratory distress. The patient will pursue further outpatient evaluation with the primary care physician or another Urgent Care/Express Care as outlined in the after visit summary. The patient is agreeable to this plan of care and follow-up instructions have been explained in detail. The patient has received these instructions in written format and have expressed an understanding of the after visit summary. Medical Decision Making: Level: 4 - Moderate I spent a total of 20 minutes on the date of the service w (more content not included)... [facility] Progress note 03-17-2021 Note Date & Type Note Facility 03-17-2021 Note HNO ID: [id number] Author: RT Luis(Afsaneh) Service: Radiology Author Type: Technologist Type: Progress Notes Filed: 03/17/2021 6:46 PM Note Text: Radiology Service Progress Note PATIENT NAME: Cristine Schultz DATE OF SERVICE: March 17, 2021 TIME: 6:46 PM PATIENT IDENTITY VERIFICATION COMPLETED USING TWO (2) IDENTIFIERS: Name and Date of confirmed by patient verbally. FALL SCREENING: Has the patient had 2 falls in the last year or 1 fall with injury or currently using an Ambulatory Assistive Device (Walker, Cane, Wheelchair, Crutches, etc.)? Emergency Room Patient: Screened in ED PATIENT GENDER DATA: Female. status: : No status: NO. PATIENT RELEVANT IMPLANT DATA REVIEWED: Not Applicable RADIOLOGY DEPARTMENT: Ultrasound PERIPHERAL IV DATA: Not applicable SIGNED BY: RT Luis(R) March 17, 2021 6:46 PM [facility] Evaluation note Note Date & Type Note Facility documented in this encounter [facility] Advance Directives No Advanced Directives Records FoundDocuments on File Type Date Recorded Patient Research Professor Expl anation Advance Directives and Living Will Power of [employer] Membership Advisors Documents on File Type Date Recorded Patient Research Professor Expl anation ACP-Advance Directive ACP-Power of [employer] Membership Advisors Documents on File Type Date Recorded Patient Research Professor Expl anation ACP-Advance Directive ACP-Power of [employer] Membership Advisors Discharge Instructions * Instructions* Carlos Navarro MD - 06/21/2020 Stay hydrated with non-caffeinated beverages Follow-up with your doctor and possibly have an outpatient echocardiogram if this continues Avoid medications that have caffeine or phenylephrine * Attachments The following attachments cannot be sent through Care Everywhere. * Video: Anxiety: How to Change Anxious Thoughts ([place]) * Video: Anxiety: Paying Attention to How You're Doing ([place]) * Palpitations ([place]) documented in this encounter* Instructions* Umair Bradley MD - 06/23/2020 Return to Emergency Room immediately if breathing worsens or worse in any other way. documented in this encounter* Attachments The following attachments cannot be sent through Care Everywhere. * Dysphagia: General Info ([place]) * Dysphagia Diet: General Info ([place]) * Swallowing: Exercises ([place]) documented in this encounter* Instructions* Chon Mckeon DO - 07/29/2020 Follow-up with your family doctor. Take medications as prescribed. Have your endoscopy done tomorrow as scheduled. Return to the emergency department for any other problems or concerns. documented in this encounter* Attachments The following attachments cannot be sent through Care Everywhere. * Hypertension: General Info ([place]) documented in this encounter Assessments Diagnosis Tachycardia- Primary Tachycardia, unspecified Palpitations Anxiety about health Diagnosis Dyspnea, unspecified type- Primary Diagnosis Dysphagia, unspecified type- Primary Diagnosis Tachycardia- Primary Tachycardia, unspecified Diagnosis Essential hypertension- Primary Unspecified essential hypertension Reason for Referral Status Reason Specialty Diagnoses / Procedures Referred By Contact Referred To Contact Closed Specialty Services Required Gastroenterology Diagnoses Dysphagia, unspecified type Umair Gardner MD [address] [place] [address] [facility] [address] [place] [address] [place] [id number] Scheduling Instructions [facility] [address] [facility], [address] [place]. [address] Fax: Summary Purpose Family History No Family History Records FoundNo Family History Records FoundNo Family History Records FoundNo Family History Records FoundNo Family History Records FoundNo Family History Records Found Additional Source Comments Reason for Visit (unrecogniz ed section and content) Reason Comments Shortness of Breath COVID NEGATIVE test 3 days ago. Patietn was positive 05/18/20 Reason Comments Dysphagia Reason Comments Hypertension Reason Comments UTI Back pain, urgency s tarted yesterday INFORMATION SOURCE (unrecogn ized section and content) DATE CREATED AUTHOR AUTHOR'S ORGANIZ ATION 09/17/2020 [facility] DATE CREATED AUTHOR AUTHOR'S ORGANIZ ATION 02/27/2021 [facility] DATE CREATED AUTHOR AUTHOR'S ORGANIZ ATION 03/18/2021 [facility] DATE CREATED AUTHOR AUTHOR'S ORGANIZ ATION 03/18/2021 [facility] DATE CREATED AUTHOR AUTHOR'S ORGANIZ ATION 10/02/2022 [facility] Source Comments (unrecognize d section and content) In the event this informatio n is protected by the Federal Confidentiality of Alcohol and Drug Abuse Patient Records regulations: The Federal rules restrict any use of the information to criminally investigate or prosecute any alcohol or drug abuse patient.[facility] FOR RECORDS PERTAINING TO PATIENTS WHO ARE OR HAVE BEEN ENROLLED IN A CHEMICAL DEPENDENCY/SUBSTANCEABUSE PROGRAM, SOME INFORMATION MAY BE OMITTED. This clinical summary was aggregated from multiple sources. Caution should be exercised in using it in the provision of clinical care. This summary normalizes information from multiple sources, and as a consequence, information in this document may materially change the coding, format and clinical context of patient data. In addition, data may be omitted in some cases. CLINICAL DECISIONS SHOULD BE BASED ON THE PRIMARY CLINICAL RECORDS. [facility]. provides no warranty or guarantee of the accuracy or completeness of information in this document.
== END | disposition home or self-care (01) ==
LOC: PAVLAB 10:04
PROVIDERS: PCP Family Medicine Geriatric Medicine; Referring Provider Internal Medicine Endocrinology, Diabetes & Metabolism; Visit Provider Internal Medicine Endocrinology, Diabetes & Metabolism
DX: E89.0 Postprocedural hypothyroidism (principal)
CPT/HCPCS: 36415; 84439; 84443

== ENCOUNTER 2023-07-20 11:29 | Outpatient (CLI) | payer OTHER, SELFPAY ==
[2023-07-20 11:47] VITALS: BP 157/103; PULSE 86; RESP 16; TEMP 36.4; O2SAT 98; BMI 24.2
--- OUTSIDE RECORDS SUMMARY | 2023-07-20 20:56 | XMS RPT_ITS | CCD ---
Author Name Unknown Address [address] [place] [address] Organization [facility] Care Team Providers Care Supervisor [facility] Name Role Phone Pierre Samuel Primary Care Provider [phone] Unavailable Primary Care Provider Unavailabl e Allergies Allergy Classification Reported Allergen(s) Allergy Type Date of Onset Reaction(s) Facility (10 sources) Penicillins; Translations: [PENICILLINS] Propensity to adverse reactions to drug 2 [place], [place] (1 source) Penicillins Drug Intolerance 2 Rash [facility] Medications Current Medications Medication Drug Class(es) Dates [...] 149.9 cm Vonnie Slabaugh PA-C Work Phone: [facility] 09-28-2022 18:36-0400 Body temperature 97.59 [degF] Vonnie Slabaugh PA-C Work Phone: [facility] 09-28-2022 18:36-0400 Body weight 54.43 kg Vonnie Slabaugh PA-C Work Phone: [facility] 09-28-2022 18:36-0400 Diastolic blood pressure 98 mm[Hg] Vonnie Slabaugh PA-C Work Phone: [facility] 09-28-2022 18:36-0400 Heart rate 90 /min Vonnie Slabaugh PA-C Work Phone: [facility] 09-28-2022 18:36-0400 Respiratory rate 16 /min Vonnie Slabaugh PA-C Work Phone: [facility] 09-28-2022 18:36-0400 SaO2% (BldA) [Mass fraction] 99 % Vonnie Slabaugh PA-C Work Phone: [facility] 09-28-2022 18:36-0400 Systolic blood pressure 158 mm[Hg] Vonnie Slabaugh PA-C Work Phone: [facility] 08-24-2020 01:21-0400 BMI (Body Mass Index) 21.64 [...] Phone: 06-23-2020 21:09-0500 BP Diastolic 106 mm[Hg] [facility] [place] , [place] 06-23-2020 21:09-0500 BP Systolic 135 mm[Hg] [facility] [place] [facility] [place] 06-23-2020 21:09-0500 Pulse (Heart Rate) 87 /min [facility] [place] 06-23-2020 21:09-0500 Pulse Oximetry 99 % [facility] [place] [facility] [place] 06-23-2020 21:09-0500 Respiratory Rate 18 /min [facility], [place] 06-23-2020 20:14-0500 BMI (Body Mass Index) 21.64 kg/m2 [facility], [place] 06-23-2020 20:14-0500 Body Temperature 97.9 [degF] [facility], [place] 06-23-2020 20:14-0500 Body weight 45.36 kg [facility] [place] [facility] [place] 06-23-2020 20:14-0500 Height 144.8 cm [facility] [place] [facility] [place] 06-21-2020 10:18-0500 BP Diastolic 95 mm[Hg] [facility] , [place] 06-21-2020 10:18-0500 BP Systolic 125 mm[Hg] [facility] [place] 06-21-2020 10:18-0500 Pulse (Heart Rate) 90 /min [facility]2020 10:18-0500 Pulse Oximetry 96 % Carlos Mane [facility] ROBINS 06-21-2020 10:18-0500 Respiratory Rate 14 /min Carlos Mane [facility] Rubi 06-21-2020 08:37-0500 Body Temperature 97.7 [degF] [facility] Encounter Date Encounter Type Care Provider Facility Start: 09-28-2022 End: 09-28-2022 ambulatory Facility:[facility] Start: 09-28-2022 End: 09-28-2022 Patient encounter procedure [...] Author Start: 03-17-2024 DIABETES SCREEN DIABETES SCREEN [facility] Start: 01-22-2023 Influenza [facility] Start: 05-24-2022 DEPRESSION ASSESSMENT DEPRESSION ASSESSMENT [facility] Start: 2021 COLOGUARD (FIT-DNA) COLOGUARD (FIT-DNA) [facility] Start: 2021 Colonoscopy COLONOSCOPY [facility] Start: 2021 COLORECTAL CANCER SCREENING COLORECTAL CANCER SCREENING [facility] Start: [address] COLONOGRAPHY [facility] Start: 2021 FECAL OCCULT BLOOD FECAL OCCULT BLOOD [facility] Start: 2021 LIPID SCREEN LIPID SCREEN [facility] Start: 2021 SIGMOIDOSCOPY SIGMOIDOSCOPY [facility] Start: 01-22-2021 Influenza vaccination [facility] Work Phone: Start: 11-13-2020 COVID-19 VACCINE (3 - Booster for Moderna series) COVID-19 VACCINE (3 - Booster for Moderna series) [facility] Start: 07-22-2020 End: 07-22-2020 Appointment 07/22/2020 Appointment Radiology [facility] Start: 01-23-2020 Influenza vaccination [facility] [place] Start: 2016 Lipid panel Lipid screen [place] Start: 2016 Mammography MAMMOGRAM [facility] Start: 2006 HPV TESTING HPV TESTING [facility] Start: 1997 PAP TESTING PAP TESTING [facility] Start: 1997 Screening for malignant neoplasm of cervix Cervical cancer screen [place] Start: 12-28-1995 DTaP/Tdap/Td vaccine (1 - Tdap) DTaP/Tdap/Td vaccine (1 - Tdap) [place] Start: 12-28-1995 Urine microalbumin profile DTAP,TDAP,TD (1 - Tdap) [facility] Start: 1994 HEPATITIS C SCREENING HEPATITIS C SCREENING [facility] Start: 1994 HIV SCREENING HIV SCREENING [facility] Start: 1992 COVID-19 Vaccine (1) COVID-19 Vaccine (1) [facility] Work Phone: Start: 12-28-1991 HIV screening HIV screen [place], [place] Start: 1976 HEPATITIS B (1 of 3 - 3-dose series) HEPATITIS B (1 of 3 - 3-dose series) [facility] Start: 1976 Hepatitis C screening Hepatitis C screen [place], [place] Bacteria identified in Urine by Culture URINE CULTURE Microbiology Routine Recurrent UTI (urinary tract infection) Urinary frequency 09/28/2022 6:43 PM EDT [facility] Work Phone: EKG 12 Lead - Chest Pain EKG 12 Lead - Chest Pain ECG STAT 06/23/2020 8:23 PM EST [place] Immunizations Immunization Date Immunization Notes Care Provider Clare hartman 09-18-2020 COVID-19 original vaccine, full dose, monovalent (MODERNA) Vonnie LIM-C Work Phone: [facility] 08-21-2020 COVID-19 original vaccine, full dose, monovalent (MODERNA) Vonnie Kumari PA-C Work Phone: [facility] 02-19-2018 influenza, injectabl e, quadrivalent, preservative free Vonnie Kumari PA-C Work Phone: [facility] Payers Date Payer Category Payer Private Health Insurance [id number] 2017 Private Health Insurance [facility] PLUS [id number] 2017-Present [phone] [address] [place] [address] HMO [id number] Social History Date Type Detail Facility Start: 04-07-2018 Tobacco smoking stat us NHIS Unknown if ever smoked [facility] [employer] [facility] Start: 1975 Sex Assigned At Not on file [facility] Start: 10-21-2011 End: 06-21-2020 Tobacco smoking status NHIS Never smoker [facility] Exposure to SARS-CoV -2 (event) Yes [facility] Start: 10-21-2011 End: 06-23-2020 Tobacco use and exposure Never used [facility] Start: 06-23-2020 End: 08-11-2020 Alcohol intake Lifetime non-drinker (finding) [facility] Start: 06-23-2020 End: 06-24-2020 History SDOH Alcohol Frequency 1 [facility] [facility] Exposure to SARS-CoV -2 (event) Not sure [facility] [facility] Start: 03-28-2021 Alcohol intake Current non-dr network security administrator of alcohol (finding) [facility] Progress note 09-28-2022 Note Date & Type Note Facility 09-28-2022 Note HNO ID: [id number] Author: Vonnie Kumari PA-C Service: ? Author Type: Physician Pin Sticker Type: Progress Notes Filed: 09/28/2022 6:55 PM [...] to Learning: None. (more content not included)... [facility]-28-2022 Patient Instructions Note [...] Vonnie Kumari PA-C documented in this encounter [facility] History of Present illness Narrative 09-28-2022 Vonnie [...] which included preparing to see the patient, [id number] patient care, completing clinical documentation, performing a medically appropriate examination, counseling and educating the patient/family/caregiver, ordering medications, tests, or procedures, and communicating results to the patient/family/caregiver. documented in this encounter [facility] Progress note 09-18-2022 Note Date & Type Note Facility 09-18-2022 Note HNO ID: [id number] Author: Francoise Elias APRN.RECYCLING ATTENDANT Service: ? Author Type: Nurse Practitioner Type: Progress Notes Filed: 09/18/2022 7:20 PM Note Text: This note was created using URXriter. Subjective Cristine Schultz is a 46 year [...] bubble baths. -Results will be released to [facility] unless there is a need for a [...] the service w (more content not included)... [facility] Progress note 03-17-2021 Note Date & Type Note Facility 03-17-2021 Note HNO ID: [id number] Author: RT Luis(Afsaneh) Service: Radiology Author Type: [...] RT Luis(R) March 17, 2021 6:46 PM [facility] Evaluation note Note Date & Type Note Facility documented in this encounter [facility] Advance Directives No Advanced Directives Records FoundDocuments on File Type Date Recorded Patient Commercial Administrator Expl anation Advance Directives and Living Will Power of Smooth Stucco Resurfacer Documents on File Type Date Recorded Patient Commercial Administrator Expl anation ACP-Advance Directive ACP-Power of Smooth Stucco Resurfacer Documents on File Type Date Recorded Patient Commercial Administrator Expl anation ACP-Advance Directive ACP-Power of Smooth Stucco Resurfacer Discharge Instructions * Instructions* Carlos Navarro MD - 06/21/2020 Stay hydrated with non-caffeinated beverages Follow-up with your doctor and possibly have an outpatient echocardiogram if this continues Avoid medications that have caffeine or phenylephrine * Attachments The following attachments cannot be sent through Care Everywhere. * Video: Anxiety: How to Change Anxious Thoughts (Belgian) * Video: Anxiety: Paying Attention to How You're Doing (Belgian) * Palpitations (Belgian) documented in this encounter* Instructions* Umair Bradley MD - 06/23/2020 Return to Emergency Room immediately if breathing worsens or worse in any other way. documented in this encounter* Attachments The following attachments cannot be sent through Care Everywhere. * Dysphagia: General Info (Belgian) * Dysphagia Diet: General Info (Belgian) * Swallowing: Exercises (Belgian) documented in this encounter* Instructions* Chon Mckeon DO - 07/29/2020 Follow-up with your family doctor. Take medications as prescribed. Have your endoscopy done tomorrow as scheduled. Return to the emergency department for any other problems or concerns. documented in this encounter* Attachments The following attachments cannot be sent through Care Everywhere. * Hypertension: General Info (Belgian) documented in this encounter Assessments Diagnosis Tachycardia- Primary Tachycardia, unspecified Palpitations Anxiety about health Diagnosis Dyspnea, unspecified type- Primary Diagnosis Dysphagia, unspecified type- Primary Diagnosis Tachycardia- Primary Tachycardia, unspecified Diagnosis Essential hypertension- Primary Unspecified essential hypertension Reason for Referral Status Reason Specialty Diagnoses / Procedures Referred By Contact Referred To Contact Closed Specialty Services Required Gastroenterology Diagnoses Dysphagia, unspecified type Umair Gardner MD [address] [place] [address] [facility] [address] [place] [address] [place] [id number] Scheduling Instructions [facility] G[facility] [address], [address] [place]. [address] Fax: Summary Purpose Family History No Family [...] DATE CREATED AUTHOR AUTHOR'S ORGANIZ ATION 09/17/2020 [facility] DATE CREATED AUTHOR AUTHOR'S ORGANIZ ATION 02/27/2021 [facility] DATE CREATED AUTHOR AUTHOR'S ORGANIZ ATION 03/18/2021 [facility] DATE CREATED AUTHOR AUTHOR'S ORGANIZ ATION 03/18/2021 [facility] DATE CREATED AUTHOR AUTHOR'S ORGANIZ ATION 10/02/2022 [facility] Source Comments (unrecognize d section and content) In the event this informatio n is protected by the Federal Confidentiality of Alcohol and Drug Abuse Patient Records regulations: The Federal rules restrict any use of the information to criminally investigate or prosecute any alcohol or drug abuse patient.[facility] FOR RECORDS PERTAINING TO PATIENTS WHO ARE [...] BE BASED ON THE PRIMARY CLINICAL RECORDS. [facility]. provides no warranty or guarantee of the accuracy or completeness of information in this document.
== END 2023-07-20 11:30 | disposition home or self-care (01) ==
PROVIDERS: PCP Family Medicine Geriatric Medicine; Referring Provider Internal Medicine; Visit Provider Internal Medicine
DX: M81.0 Age-related osteoporosis without current pathological fracture (principal)
CPT/HCPCS: J0897

== ENCOUNTER 2023-07-20 15:55 | Outpatient (CLI) | payer OTHER, SELFPAY ==
[2023-07-20] MEDS: DENOSUMAB 60 MG/ML SC (12:08)
[2023-07-20 16:14] VITALS: BP 157/103; PULSE 86; RESP 16; TEMP 36.4; O2SAT 98; BMI 24.2
== END 2023-07-20 15:56 | disposition home or self-care (01) ==
LOC: MEDOUTP 15:56
PROVIDERS: PCP Family Medicine Geriatric Medicine; Referring Provider Internal Medicine Endocrinology, Diabetes & Metabolism; Visit Provider Internal Medicine Endocrinology, Diabetes & Metabolism
DX: M81.0 Age-related osteoporosis without current pathological fracture (principal)
CPT/HCPCS: 96372; J0897

== ENCOUNTER → 2023-09-03 | Outpatient (CLI) | payer OTHER, SELFPAY ==
[2023-09-03 09:30] LABS: T4 Free Direct 1.29 ng/dL (0.76-1.46); Thyroid Stim Hormone (TSH) 9.94 uIU/mL (0.358-3.74)
== END | disposition home or self-care (01) ==
LOC: PAVLAB 08:57
PROVIDERS: PCP Family Medicine Geriatric Medicine; Referring Provider Internal Medicine Endocrinology, Diabetes & Metabolism; Visit Provider Internal Medicine Endocrinology, Diabetes & Metabolism
DX: E89.0 Postprocedural hypothyroidism (principal); M81.0 Age-related osteoporosis without current pathological fracture
CPT/HCPCS: 36415; 84439; 84443

== ENCOUNTER → 2023-09-07 | Outpatient (CLI) | payer OTHER, SELFPAY | END | disposition home or self-care (01) | LOC: LABSPEC 15:03 | PROVIDERS: PCP Family Medicine Geriatric Medicine; Referring Provider Otolaryngology Otolaryngology/Facial Plastic Surgery; Visit Provider Otolaryngology Otolaryngology/Facial Plastic Surgery | DX: J32.9 Chronic sinusitis, unspecified (principal) | CPT/HCPCS: 87070; 87205 ==

== ENCOUNTER → 2023-11-15 | Outpatient (CLI) | payer OTHER, SELFPAY ==
[2023-11-15 17:04] LABS: T4 Free Direct 1.32 ng/dL (0.76-1.46); Thyroid Stim Hormone (TSH) 0.35 uIU/mL (0.358-3.74)
== END | disposition home or self-care (01) ==
LOC: PAVLAB 15:57
PROVIDERS: PCP Family Medicine Geriatric Medicine; Referring Provider Internal Medicine Endocrinology, Diabetes & Metabolism; Visit Provider Internal Medicine Endocrinology, Diabetes & Metabolism
DX: E89.0 Postprocedural hypothyroidism (principal)
CPT/HCPCS: 36415; 84439; 84443

== ENCOUNTER → 2024-08-03 | Outpatient (CLI) | payer OTHER, SELFPAY ==
[2024-08-03 12:38] LABS: Absolute Lymphocyte Count 1.15 X10^3/uL (0.83-4.51); Absolute Neutrophil Count 3.8 X10^3/uL (2.0-7.7); Basophil# 0.05 X10^3/uL; Basophil% 0.9 % (0-1); Eosinophils% 1.8 % (0-5); Hematocrit 46.5 % (37-47); Hemoglobin 15.4 g/dL (12.0-15.0); Lymphocyte # 1.15 X10^3/ul (0.83-4.51); Lymphocyte % 20.3 % (19-41); Mean Corp Hgb Conc 33.1 g/dL (32-36); Mean Corpuscular Hgb 29.2 pg (27.0-32.0); Mean Corpuscular Volume 88.1 fL (81-99); Mean Platelet Vol. 10.4 fl (6.2-12.0); Monocyte# 0.44 X10^3/uL; Monocyte% 7.8 % (0-10); NRBC Flagged by Analyzer 0 % (0-5); Neutrophil # 3.83 X10^3/uL (2.7-7.7); Neutrophil % 67.6 % (47-70); Platelet Count 298 K/mm3 (150-450); RBC Distribution Width CV 12.1 % (11.6-14.6); RBC Distribution Width SD 38.6 fl (35.1-43.9); Red Blood Count 5.28 M/mm3 (4.2-5.4); White Blood Count 5.7 K/mm3 (4.4-11.0)
[2024-08-03 13:13] LABS: ALB/GLOB Ratio 1.6 RATIO (0.9-2.4); AST(SGOT) 30 U/L (<=31); Alanine Aminotransfer ALT/SGPT 44 U/L (<=34); Albumin, Serum 4.8 g/dL (3.5-5.0); Alkaline Phosphatase 88 U/L (35-104); Anion Gap 15 (5-15); BUN 8 mg/dL (4-19); BUN/Creat Ratio 9.8 RATIO (10-20); Calcium,Total 9.2 mg/dL (7.6-11.0); Carbon Dioxide 22.6 mmol/L (21.0-32.0); Chloride 102 mmol/L (98-108); Cholesterol 301 mg/dL (<=200); Creatinine, Serum 0.82 mg/dL (0.70-1.20); EST Glomerular Filtration Rate 89 (>60); Glucose 90 mg/dL (70-99); High Density Lipoprotein 56 mg/dL; Low Density Lipoprotein Calc. 211 mg/dL; Potassium 4.2 mmol/L (3.3-5.1); Protein, Total 7.8 g/dL (5.9-8.4); Sodium Level 140 mmol/L (133-145); Total Bilirubin 0.54 mg/dL (0.00-1.30); Triglycerides 173 mg/dL; Very Low Density Lipoprotein 35 mg/dL (5-40); cholesterol:hdl ratio screen 5.38
[2024-08-03 13:19] LABS: Thyroid Stim Hormone (TSH) 0.226 uIU/mL (0.300-4.200); Vitamin D,25 Hydroxy 23.4 ng/mL (30-100)
== END | disposition home or self-care (01) ==
LOC: BIMLAB 08:53
PROVIDERS: PCP Internal Medicine; Referring Provider Internal Medicine; Visit Provider Internal Medicine
DX: E89.0 Postprocedural hypothyroidism (principal); M81.8 Other osteoporosis without current pathological fracture; F41.9 Anxiety disorder, unspecified; Z13.6 Encounter for screening for cardiovascular disorders
CPT/HCPCS: 36415; 80053; 80061; 82306; 84439; 84443; 85025

== ENCOUNTER → 2024-09-07 | Outpatient (CLI) | payer OTHER, SELFPAY ==
--- NOTE | 2024-09-07 14:30 | BI_ITS ---
EXAM: SCRN MAMM (CAD)W/KERI BILAT DATE: 09/07/2024 CLINICAL HISTORY: F, Age 48 y/o , SCREENING No family history. BREAST CANCER RISK ASSESSMENT: Not assessed. TECHNIQUE: Bilateral screening digital breast tomosynthesis with 2D and 3D images. Computer aided detection. COMPARISON: Baseline study. FINDINGS: TISSUE DENSITY: The breast tissue is extremely dense which lowers the sensitivity of mammography. Bilateral Breast Mammographic Findings: No significant masses, calcifications or other abnormalities are identified. BI/SCRN MAMM (CAD)W/KERI BILAT IMPRESSION: Right Breast: BIRADS 1 NEGATIVE. Left Breast: BIRADS 1 NEGATIVE. OVERALL FINAL ASSESSMENT: BIRADS 1 NEGATIVE RECOMMENDATION: Routine annual follow-up in 1 Year A letter with findings and recommendations will be mailed to the patient. Reading Location: [place] [address]
== END | disposition home or self-care (01) ==
LOC: OPBI 14:14
PROVIDERS: PCP Internal Medicine; Referring Provider Internal Medicine; Visit Provider Internal Medicine
DX: Z12.31 Encounter for screening mammogram for malignant neoplasm of breast (principal)
CPT/HCPCS: 77063; 77067